=== PATIENT | male | born 1940 | race Caucasian/White ===

== ENCOUNTER 2021-04-12 17:58 | Emergency (ER) | payer MEDICARE ==
[~2021-04-12] VITALS: Ht 180.3 cm; Wt 77.2 kg
[2021-04-12 18:42] LABS: HEMOGLOBIN 15.2 g/dl (14.0-18.0); IMMATURE GRANULOCYTES 0.5 % (0.0-5.0); MEAN CELL VOLUME 90.3 fL CALC (80.0-100.0); MEAN CORPUSCULAR HGB 31.2 pG CALC (26.0-32.0); MEAN CORPUSCULAR HGB CONC 34.5 g/dL CAL (32.0-36.0); NEUT# 4.87 thou/uL (1.82-7.42); RED BLOOD COUNT 4.87 mill/uL (4.70-6.10); RED CELL DISTRI WIDTH 12.4 % (11.5-15.5)
[2021-04-12 19:02] LABS: ALBUMIN 4.1 g/dL (3.2-5.0); BILIRUBIN, TOTAL 0.7 mg/dL (0.0-1.4); C-REACTIVE PROTEIN 5.1 mg/dL (0-0.9); CREATININE 1.5 mg/dL (0.7-1.3); POTASSIUM 4.1 mmol/l (3.5-5.1)
[2021-04-12] MEDS ORDERED: ZPAK PO (20:57)
[2021-04-12 21:22] VITALS: BP 167/75
--- NOTE | 2021-04-13 08:34 | NUR ---
RECEIVED REFERRAL FOR ANTIBODIES. SPOKE WITH PTS, HE STATES HIS SYMPTOMS STARTED 16 DAYS AGO. NOT A CANDIDATE. AWARE.
== END 2021-04-12 21:33 | disposition home or self-care (01) ==
LOC: ED 17:58
PROVIDERS: Family Medicine
DX: U07.1 COVID-19 (principal); J12.82 Pneumonia due to coronavirus disease 2019; Z90.5 Acquired absence of kidney
CPT/HCPCS: Q9967